=== PATIENT | female | born 1970 | race Caucasian/White ===

== ENCOUNTER 2017-02-11 05:48 | Emergency (ER) | payer BC ==
[2017-02-11 07:30] LABS: HEMOGLOBIN 14.6 gm/dl (12.3-15.3); RED BLOOD COUNT 4.72 M/UL (4.00-5.10)
[2017-02-11 07:42] LABS: BUN/CREATININE RATIO 28 (0-10)
== END 2017-02-11 08:57 | disposition home or self-care (01) ==
LOC: ER1 05:48
PROVIDERS: Family Medicine
DX: N20.1 Calculus of ureter (principal); R91.8 Other nonspecific abnormal finding of lung field; Z88.1 Allergy status to other antibiotic agents; F17.200 Nicotine dependence, unspecified, uncomplicated; Z79.82 Long term (current) use of aspirin; Z88.2 Allergy status to sulfonamides; Z88.0 Allergy status to penicillin; Z79.899 Other long term (current) drug therapy
CPT/HCPCS: 36415; 80053; 81001; 83690; 85025; 87086; 96374; 96375; 99284; J1885; J2270; J2405

== ENCOUNTER → 2021-02-20 | Outpatient (CLI) | payer BC, OTHER ==
[~2021-02-20] MED LIST: ECOTRIN81 MG PO; LEVAQUIN750 MG PO; MINIVELLE1 EAC1 TD
== END ==
LOC: EMI 09:52
DX: G43.709 Chronic migraine without aura, not intractable, without status migrainosus (principal); M62.838 Other muscle spasm; M54.81 Occipital neuralgia; H70.92 Unspecified mastoiditis, left ear
CPT/HCPCS: 70553; A9577

== ENCOUNTER 2021-06-14 09:40 | Emergency (ER) | payer BC ==
[2021-06-14 10:58] LABS: HEMOGLOBIN 15.7 gm/dl (12.3-15.3); RED BLOOD COUNT 4.84 M/UL (4.00-5.10); WHITE BLOOD COUNT 12.6 K/UL (4.5-11.0)
[2021-06-14 11:23] LABS: BUN/CREATININE RATIO 24 (0-10)
[2021-06-14] MEDS ORDERED: HYDROCODON-ACE1 EAC4 PO (13:46)
[2021-06-14] MEDS ORDERED: OMNICEF 300 MG300 MG PO (13:46)
[2021-06-14] MEDS ORDERED: FLOMAX 0.4 MG0.4 MG PO (13:48)
== END 2021-06-14 14:08 | disposition home or self-care (01) ==
LOC: ER1 09:40
PROVIDERS: Emergency Medicine
DX: N13.2 Hydronephrosis with renal and ureteral calculous obstruction (principal); N39.0 Urinary tract infection, site not specified; F17.200 Nicotine dependence, unspecified, uncomplicated; Z90.710 Acquired absence of both cervix and uterus; Z87.442 Personal history of urinary calculi
CPT/HCPCS: 80053; 81001; 83690; 85025; 87086; 96374; 96375; 96376; 99284; J0696; J1200; J1885; J2270; J2405; J7030; Q9967

== ENCOUNTER → 2021-06-20 | Outpatient (CLI) | payer BC ==
[~2021-06-20] MED LIST changes: +FLOMAX 0.4 MG0.4 MG PO; +HYDROCODON-ACE1 EAC4 PO; +OMNICEF 300 MG300 MG PO
== END ==
LOC: EMI 13:02
DX: M50.322 Other cervical disc degeneration at C5-C6 level (principal); R29.898 Other symptoms and signs involving the musculoskeletal system; M62.838 Other muscle spasm
CPT/HCPCS: 72141